=== PATIENT | male | born 1985 | race Caucasian/White ===

== ENCOUNTER 2021-04-12 08:30 | Inpatient (IN) ==
[2021-04-12] MEDS ORDERED: Cefepime 2 GM in Dextrose 2 GM/50 ML BAG IV SCH (10:00)
[2021-04-12] MEDS ORDERED: Vancomycin per Pharmacy 1 EA NOTE FOLLOW UP SCH (10:00)
[2021-04-12] MEDS: NS 0.9% 1000 ml BAG 1,000 ML IV SCH (10:21)
[2021-04-12 10:32] LABS: Hematocrit 37 % (42-52); Hemoglobin 12.6 g/dL (14.0-18.0); Mean Corpuscular HGB Conc 35 g/dL (31-36); Mean Corpuscular Hemoglobin 29 pg (27-31); Mean Corpuscular Volume 83 fL (80-94); Mean Platelet Volume 6.8 fL (7.4-10.4); Platelet Count 270 10^3/uL (150-450); Red Cell Distribution Width 14 % (10-15); White Blood Count 18.4 10^3/uL (3.5-10.8)
[2021-04-12 10:50] LABS: Albumin/Globulin Ratio 0.8 (1-3); C Reactive Protein 285.42 mg/L (<8.01); Calcium 8.8 mg/dL (8.6-10.3); Globulin 3.7 g/dL (2-4); Potassium 3.7 mmol/L (3.5-5.0); Total Bilirubin 1.1 mg/dL (0.2-1.0); Total Protein 6.7 g/dL (6.4-8.9); eGFR CKD-EPI 115.5 (>60)
[2021-04-12] MEDS ORDERED: Piperacillin/Tazobac ADVAN 3.375 GM in NS 0.9% 100 ml BAG 100 ML IV ONE (11:31)
[2021-04-12] MEDS ORDERED: Iohexol 300 (CONTRAST) 10 ML SDV IV ONE (11:38)
[2021-04-12] MEDS ORDERED: Zosyn per Pharmacy NOTE FOLLOW UP SCH (12:00)
[2021-04-12 12:15] LABS: ABS Eosinophils 0.1 10^3/ul (0-0.6); ABS Lymphocytes 0.4 10^3/ul (1.0-4.8); ABS Neutrophils 16.9 10^3/ul (1.5-7.7); Eosinophil % 0.6 %; Lymphocyte % 2.1 %
[2021-04-12] MEDS: ZOSYN 3.375 GM Q8H per EXTENDED INFUSION IV SCH (16:36)
[2021-04-12] MEDS: Vancomycin 1000 MG in NS 0.9% 250 ML IVPB SCH (17:22)
[2021-04-12] MEDS: HYDROmorphone 1 MG/1 ML SYRINGE IV SLOW PU PRN (21:23)
[2021-04-12 21:52] LABS: Troponin I 0.07 ng/mL (<0.03)
[2021-04-13] MEDS: NS 0.9% 1000 ml BAG 1,000 ML IV SCH ×2 (00:17→17:28)
[2021-04-13] MEDS: Vancomycin 1000 MG in NS 0.9% 250 ML IVPB SCH ×3 (00:34→17:22)
[2021-04-13] MEDS: ZOSYN 3.375 GM Q8H per EXTENDED INFUSION IV SCH ×2 (00:34→08:37)
[2021-04-13] MEDS: HYDROmorphone 1 MG/1 ML SYRINGE IV SLOW PU PRN ×3 (04:11→14:36)
[2021-04-13 06:44] LABS: ABS Eosinophils 0.1 10^3/ul (0-0.6); ABS Lymphocytes 0.7 10^3/ul (1.0-4.8); ABS Monocytes 1.1 10^3/ul (0-0.8); ABS Neutrophils 13.1 10^3/ul (1.5-7.7); Eosinophil % 0.6 %; Hematocrit 33 % (42-52); Hemoglobin 11.4 g/dL (14.0-18.0); Lymphocyte % 4.7 %; Mean Corpuscular HGB Conc 35 g/dL (31-36); Mean Corpuscular Hemoglobin 29 pg (27-31); Mean Corpuscular Volume 84 fL (80-94); Mean Platelet Volume 7.4 fL (7.4-10.4); Platelet Count 241 10^3/uL (150-450); Red Blood Count 3.95 10^6 /uL (4.18-5.48); Red Cell Distribution Width 14 % (10-15)
[2021-04-13 06:56] LABS: Potassium 3.5 mmol/L (3.5-5.0); eGFR CKD-EPI 115.9 (>60)
[2021-04-13] MEDS ORDERED: HYDROmorphone 1 MG/1 ML SYRINGE IV SLOW PU ONE (15:05)
[2021-04-13] MEDS ORDERED: HYDROmorphone 0.5 MG/0.5 ML SYRINGE ONE (15:12)
[2021-04-13] MEDS ORDERED: HYDROmorphone 1 MG/1 ML SYRINGE ONE (15:14)
[2021-04-13] MEDS ORDERED: Vancomycin Trough Check NOTE FOLLOW UP ONE (16:30)
[2021-04-13] MEDS ORDERED: Senna TAB 8.6 mg TAB PO PRN (17:49)
[2021-04-14] MEDS: Vancomycin 1,250 MG in NS 0.9% 250 ml 250 ML IVPB SCH ×3 (00:53→18:05)
[2021-04-14] MEDS: HYDROmorphone 1 MG/1 ML SYRINGE IV SLOW PU PRN ×2 (01:01→08:07)
[2021-04-14 06:40] LABS: ABS Eosinophils 0.1 10^3/ul (0-0.6); ABS Lymphocytes 1.1 10^3/ul (1.0-4.8); ABS Monocytes 1.3 10^3/ul (0-0.8); ABS Neutrophils 9.7 10^3/ul (1.5-7.7); Hematocrit 32 % (42-52); Hemoglobin 11.1 g/dL (14.0-18.0); Lymphocyte % 8.8 %; Mean Corpuscular HGB Conc 34 g/dL (31-36); Mean Corpuscular Hemoglobin 29 pg (27-31); Mean Corpuscular Volume 84 fL (80-94); Mean Platelet Volume 7.1 fL (7.4-10.4); Platelet Count 245 10^3/uL (150-450); Red Blood Count 3.84 10^6 /uL (4.18-5.48); Red Cell Distribution Width 14 % (10-15); White Blood Count 12.2 10^3/uL (3.5-10.8)
[2021-04-14 06:58] LABS: C Reactive Protein 156.43 mg/L (<8.01); Calcium 7.7 mg/dL (8.6-10.3); Potassium 3.6 mmol/L (3.5-5.0); eGFR CKD-EPI 126.4 (>60)
[2021-04-14] MEDS ORDERED: Enoxaparin 80 MG/0.8 ML SYR SUBCUT SCH (10:00)
[2021-04-14] MEDS: NS 0.9% 1000 ml BAG 1,000 ML IV SCH ×2 (11:54→22:00)
[2021-04-14] MEDS ORDERED: Rocuronium 50 mg VIAL 10 mg/ml 5 ml VIAL (50 mg) ONE (16:08)
[2021-04-14] MEDS ORDERED: Ondansetron 4 mg VIAL 2 MG/ML 2 ml VIAL ONE (16:08)
[2021-04-14] MEDS ORDERED: Dexamethasone IV 4 MG/ML VIAL 1 ml VIAL ONE (16:08)
[2021-04-14] MEDS ORDERED: Midazolam 2 mg/2 ml VIAL 1 mg/ml 2 ml VIAL (2 mg) ONE (16:08)
[2021-04-14] MEDS ORDERED: Lidocaine 2% PF 5 ML VIAL ONE (16:08)
[2021-04-14] MEDS ORDERED: Propofol 10 MG/ML 20 ML BTL ONE (16:08)
[2021-04-14] MEDS ORDERED: fentaNYL 100 mcg/2 ml 50 MCG/ML VIAL ONE (16:08)
[2021-04-14] MEDS ORDERED: HYDROmorphone 1 MG/1 ML SYRINGE IV SLOW PU PRN (16:15)
[2021-04-14] MEDS ORDERED: Famotidine IV 10 MG/ML 2 ml VIAL (20 mg) IV SLOW PU ONE (16:15)
[2021-04-14] MEDS ORDERED: Famotidine IV 10 MG/ML 2 ml VIAL (20 mg) ONE (16:20)
[2021-04-14] MEDS ORDERED: HYDROmorphone 1 MG/1 ML SYRINGE ONE (16:21)
[2021-04-14] MEDS ORDERED: oxyCODONE/Acetamin 5/325 mg TAB PO PRN (18:47)
[2021-04-14] MEDS ORDERED: Naloxone 0.4 mg VIAL 0.4 mg/ml 1 ml VIAL IV PRN (18:47)
[2021-04-14] MEDS ORDERED: Levalbuterol 0.63MG/3ML NEB UNIT OF USE INH PRN (18:47)
[2021-04-14] MEDS ORDERED: HYDROmorphone 1 MG/1 ML SYRINGE IV PRN (18:47)
[2021-04-14] MEDS ORDERED: oxyCODONE/Acetamin 5/325 mg TAB ONE (18:59)
[2021-04-15] MEDS: Vancomycin 1,250 MG in NS 0.9% 250 ml 250 ML IVPB SCH ×3 (00:50→17:53)
[2021-04-15] MEDS: Enoxaparin 80 MG/0.8 ML SYR SUBCUT SCH ×2 (05:09→17:25)
[2021-04-15] MEDS ORDERED: Vancomycin Trough Check NOTE FOLLOW UP ONE (08:30)
[2021-04-15 09:06] LABS: Hematocrit 33 % (42-52); Hemoglobin 11.1 g/dL (14.0-18.0); Mean Corpuscular HGB Conc 33 g/dL (31-36); Mean Corpuscular Hemoglobin 28 pg (27-31); Mean Corpuscular Volume 85 fL (80-94); Mean Platelet Volume 7.1 fL (7.4-10.4); Platelet Count 329 10^3/uL (150-450); Red Blood Count 3.91 10^6 /uL (4.18-5.48); Red Cell Distribution Width 14 % (10-15); White Blood Count 19.2 10^3/uL (3.5-10.8)
[2021-04-15] MEDS: HYDROmorphone 1 MG/1 ML SYRINGE IV SLOW PU PRN ×3 (09:25→17:26)
[2021-04-15 09:26] LABS: C Reactive Protein 172.96 mg/L (<8.01); Calcium 7.7 mg/dL (8.6-10.3); eGFR CKD-EPI 128.3 (>60)
[2021-04-15 09:39] LABS: Vancomycin Trough 11.7 mcg/mL
[2021-04-15 10:16] LABS: ABS Basophils 0.1 10^3/ul (0-0.2); ABS Lymphocytes 1.4 10^3/ul (1.0-4.8); ABS Monocytes 1.1 10^3/ul (0-0.8); ABS Neutrophils 16.5 10^3/ul (1.5-7.7); Eosinophil % 0.1 %; Lymphocyte % 7.5 %; Nucleated Red Blood Cells % 0.1
[2021-04-15] MEDS: NS 0.9% 1000 ml BAG 1,000 ML IV SCH (12:24)
[2021-04-16] MEDS: Vancomycin 1,250 MG in NS 0.9% 250 ml 250 ML IVPB SCH ×3 (00:35→18:01)
[2021-04-16] MEDS: NS 0.9% 1000 ml BAG 1,000 ML IV SCH (00:36)
[2021-04-16] MEDS: HYDROmorphone 1 MG/1 ML SYRINGE IV SLOW PU PRN (04:32)
[2021-04-16] MEDS: Enoxaparin 80 MG/0.8 ML SYR SUBCUT SCH ×2 (04:38→17:57)
[2021-04-16] MEDS ORDERED: Buprenorp/Nalox 8-2 MG FILM SL FILM SCH (11:00)
[2021-04-16] MEDS ORDERED: Propofol 10 MG/ML 20 ML BTL ONE (11:10)
[2021-04-16] MEDS ORDERED: fentaNYL 100 mcg/2 ml 50 MCG/ML VIAL ONE (11:10)
[2021-04-16] MEDS ORDERED: Midazolam 5 mg/5 ml VIAL 1 mg/ml 5 ml VIAL (5 mg) ONE (11:10)
[2021-04-16] MEDS ORDERED: Ondansetron 4 mg VIAL 2 MG/ML 2 ml VIAL ONE (11:10)
[2021-04-16] MEDS ORDERED: Dexamethasone IV 4 MG/ML VIAL 1 ml VIAL ONE (11:10)
[2021-04-16] MEDS ORDERED: Lidocaine 2% PF 5 ML VIAL ONE (11:10)
[2021-04-16] MEDS ORDERED: Rocuronium 50 mg VIAL 10 mg/ml 5 ml VIAL (50 mg) ONE (11:10)
[2021-04-16] MEDS ORDERED: Sugammadex 500 MG/5 ML 5 ml VIAL IV PUSH ONE (12:27)
[2021-04-16] MEDS ORDERED: Levalbuterol 0.63MG/3ML NEB UNIT OF USE INH ONE (12:56)
[2021-04-16] MEDS ORDERED: Levalbuterol 0.63MG/3ML NEB UNIT OF USE INH PRN (13:06)
[2021-04-16] MEDS ORDERED: Lactated Ringers 1000 ml BAG 1,000 ML IV ONE (13:27)
[2021-04-16 15:09] LABS: PCO2 Arterial 32 mmHg (35-45); PO2 Arterial 79 mmHg (80-100)
[2021-04-16 15:22] LABS: Hematocrit 29 % (42-52); Hemoglobin 9.9 g/dL (14.0-18.0); Mean Corpuscular HGB Conc 34 g/dL (31-36); Mean Corpuscular Hemoglobin 29 pg (27-31); Mean Corpuscular Volume 84 fL (80-94); Red Blood Count 3.43 10^6 /uL (4.18-5.48); Red Cell Distribution Width 14 % (10-15); White Blood Count 19.6 10^3/uL (3.5-10.8)
[2021-04-16] MEDS ORDERED: Furosemide 40 mg/4 ml IV VIAL IV SLOW PU ONE (15:25)
[2021-04-16] MEDS ORDERED: Furosemide 20 mg/2 ml IV VIAL ONE (15:28)
[2021-04-16 16:06] LABS: ABS Basophils 0.1 10^3/ul (0-0.2); ABS Eosinophils 0.1 10^3/ul (0-0.6); ABS Lymphocytes 1.7 10^3/ul (1.0-4.8); ABS Monocytes 0.8 10^3/ul (0-0.8); Eosinophil % 0.4 %; Lymphocyte % 8.7 %; Mean Platelet Volume 6.7 fL (7.4-10.4); Platelet Count 417 10^3/uL (150-450)
[2021-04-16 16:10] LABS: Albumin 2.2 g/dL (3.2-5.2); Albumin/Globulin Ratio 0.7 (1-3); Calcium 7.1 mg/dL (8.6-10.3); Globulin 3.2 g/dL (2-4); Potassium 3.8 mmol/L (3.5-5.0); Total Bilirubin 0.8 mg/dL (0.2-1.0); Total Protein 5.4 g/dL (6.4-8.9); eGFR CKD-EPI 128.3 (>60)
[2021-04-17] MEDS: Vancomycin 1,500 MG in NS 0.9% 250 ml 250 ML IVPB SCH ×3 (02:16→18:06)
[2021-04-17] MEDS: Buprenorp/Nalox 8-2 MG FILM SL FILM SCH ×3 (02:42→19:58)
[2021-04-17] MEDS: Enoxaparin 80 MG/0.8 ML SYR SUBCUT SCH ×2 (06:02→18:06)
[2021-04-17 11:00] LABS: Hematocrit 33 % (42-52); Hemoglobin 11.2 g/dL (14.0-18.0); Mean Corpuscular HGB Conc 34 g/dL (31-36); Mean Corpuscular Hemoglobin 29 pg (27-31); Mean Corpuscular Volume 83 fL (80-94); Mean Platelet Volume 6.3 fL (7.4-10.4); Platelet Count 398 10^3/uL (150-450); Red Blood Count 3.91 10^6 /uL (4.18-5.48); Red Cell Distribution Width 14 % (10-15); White Blood Count 21.9 10^3/uL (3.5-10.8)
[2021-04-17 11:18] LABS: Albumin 2.1 g/dL (3.2-5.2); Albumin/Globulin Ratio 0.6 (1-3); C Reactive Protein 185.85 mg/L (<8.01); Calcium 7.2 mg/dL (8.6-10.3); Globulin 3.5 g/dL (2-4); Magnesium 1.6 mg/dL (1.9-2.7); Phosphorus 3.2 mg/dL (2.5-5.0); Potassium 3.2 mmol/L (3.5-5.0); Total Bilirubin 0.8 mg/dL (0.2-1.0); Total Protein 5.6 g/dL (6.4-8.9)
[2021-04-17 12:06] LABS: ABS Basophils 0.1 10^3/ul (0-0.2); ABS Eosinophils 0.2 10^3/ul (0-0.6); ABS Lymphocytes 1.9 10^3/ul (1.0-4.8); ABS Monocytes 0.7 10^3/ul (0-0.8); Eosinophil % 0.7 %; Lymphocyte % 8.9 %; Nucleated Red Blood Cells % 0.1
[2021-04-17] MEDS ORDERED: Potassium Chloride LIQUID 20 MEQ/15 ML LIQUID PO ONE (14:00)
[2021-04-17] MEDS ORDERED: Furosemide 40 mg/4 ml IV VIAL IV ONE (15:38)
[2021-04-17] MEDS ORDERED: Magnesium Hydroxide LIQ 30 ML UDC PO ONE (19:12)
[2021-04-17] MEDS: Senna TAB 8.6 mg TAB PO SCH (19:58)
[2021-04-18] MEDS ORDERED: Acetaminophen IV 1 GM/100ML 100 ML IV ONE (02:25)
[2021-04-18] MEDS: Vancomycin 1,500 MG in NS 0.9% 250 ml 250 ML IVPB SCH ×4 (03:13→18:30)
[2021-04-18] MEDS: Enoxaparin 80 MG/0.8 ML SYR SUBCUT SCH ×2 (06:45→18:30)
[2021-04-18] MEDS ORDERED: Potassium Chlor 20 meq TAB.ER PO ONE (07:07)
[2021-04-18] MEDS: Senna TAB 8.6 mg TAB PO SCH ×2 (07:28→20:50)
[2021-04-18] MEDS: Buprenorp/Nalox 8-2 MG FILM SL FILM SCH ×2 (07:28→20:49)
[2021-04-18] MEDS ORDERED: KCL 20 MEQ/100 ML IVPREMIX 20 MEQ/100 ML BAG IV ONE (08:10)
[2021-04-18 08:13] LABS: Hematocrit 31 % (42-52); Hemoglobin 10.5 g/dL (14.0-18.0); Mean Corpuscular HGB Conc 34 g/dL (31-36); Mean Corpuscular Hemoglobin 29 pg (27-31); Mean Corpuscular Volume 85 fL (80-94); Mean Platelet Volume 6.6 fL (7.4-10.4); Platelet Count 459 10^3/uL (150-450); Red Blood Count 3.61 10^6 /uL (4.18-5.48); Red Cell Distribution Width 14 % (10-15); White Blood Count 22.7 10^3/uL (3.5-10.8)
[2021-04-18 08:28] LABS: Calcium 7.4 mg/dL (8.6-10.3); Magnesium 1.8 mg/dL (1.9-2.7); Phosphorus 4.5 mg/dL (2.5-5.0); Potassium 4.5 mmol/L (3.5-5.0); eGFR CKD-EPI 125.2 (>60)
[2021-04-18] MEDS ORDERED: Vancomycin Trough Check NOTE FOLLOW UP ONE (09:30)
[2021-04-18] MEDS ORDERED: Furosemide 20 mg/2 ml IV VIAL IV ONE (13:49)
[2021-04-19] MEDS: Vancomycin 1,500 MG in NS 0.9% 250 ml 250 ML IVPB SCH ×2 (01:58→10:04)
[2021-04-19] MEDS: Enoxaparin 80 MG/0.8 ML SYR SUBCUT SCH ×2 (05:35→17:34)
[2021-04-19 07:40] LABS: ABS Basophils 0.2 10^3/ul (0-0.2); ABS Eosinophils 0.3 10^3/ul (0-0.6); ABS Monocytes 0.7 10^3/ul (0-0.8); ABS Neutrophils 16.5 10^3/ul (1.5-7.7); Eosinophil % 1.6 %; Hematocrit 29 % (42-52); Hemoglobin 9.8 g/dL (14.0-18.0); Mean Corpuscular HGB Conc 34 g/dL (31-36); Mean Corpuscular Hemoglobin 29 pg (27-31); Mean Corpuscular Volume 85 fL (80-94); Mean Platelet Volume 6.5 fL (7.4-10.4); Platelet Count 509 10^3/uL (150-450); Red Blood Count 3.39 10^6 /uL (4.18-5.48); Red Cell Distribution Width 14 % (10-15); White Blood Count 19.7 10^3/uL (3.5-10.8)
[2021-04-19 07:55] LABS: Albumin 2.4 g/dL (3.2-5.2); Albumin/Globulin Ratio 0.6 (1-3); C Reactive Protein 192.53 mg/L (<8.01); Calcium 7.5 mg/dL (8.6-10.3); Globulin 4.2 g/dL (2-4); Magnesium 1.8 mg/dL (1.9-2.7); Total Bilirubin 0.8 mg/dL (0.2-1.0); Total Protein 6.6 g/dL (6.4-8.9); eGFR CKD-EPI 129.6 (>60)
[2021-04-19] MEDS ORDERED: Magnesium Sulfate IV 1GM/100ML 1 GM/100 ML BAG IV ONE (08:41)
[2021-04-19] MEDS: Senna TAB 8.6 mg TAB PO SCH ×3 (09:02→19:42)
[2021-04-19] MEDS: Buprenorp/Nalox 8-2 MG FILM SL FILM SCH ×2 (09:49→19:43)
[2021-04-19] MEDS ORDERED: Vancomycin 1,250 MG in NS 0.9% 250 ml 250 ML IVPB SCH (11:52)
[2021-04-19] MEDS ORDERED: COVID-19 VACCINE, MRNA(PFIZER)/PF 30 MCG/0.3 ML IM ONE (12:00)
[2021-04-19] MEDS: Vancomycin 1,250 MG in NS 0.9% 250 ml 250 ML IVPB SCH (17:34)
[2021-04-20] MEDS: Vancomycin 1,250 MG in NS 0.9% 250 ml 250 ML IVPB SCH ×3 (02:00→17:48)
[2021-04-20] MEDS: Enoxaparin 80 MG/0.8 ML SYR SUBCUT SCH ×2 (05:27→17:48)
[2021-04-20 06:36] LABS: ABS Eosinophils 0.4 10^3/ul (0-0.6); ABS Lymphocytes 1.5 10^3/ul (1.0-4.8); ABS Monocytes 0.6 10^3/ul (0-0.8); ABS Neutrophils 13.4 10^3/ul (1.5-7.7); Eosinophil % 2.4 %; Hematocrit 28 % (42-52); Hemoglobin 9.6 g/dL (14.0-18.0); Lymphocyte % 9.7 %; Mean Corpuscular HGB Conc 34 g/dL (31-36); Mean Corpuscular Hemoglobin 29 pg (27-31); Mean Corpuscular Volume 85 fL (80-94); Mean Platelet Volume 6.4 fL (7.4-10.4); Platelet Count 529 10^3/uL (150-450); Red Blood Count 3.33 10^6 /uL (4.18-5.48); Red Cell Distribution Width 14 % (10-15); White Blood Count 15.9 10^3/uL (3.5-10.8)
[2021-04-20 06:54] LABS: Albumin 2.3 g/dL (3.2-5.2); Albumin/Globulin Ratio 0.5 (1-3); Calcium 7.6 mg/dL (8.6-10.3); Globulin 4.3 g/dL (2-4); Magnesium 1.9 mg/dL (1.9-2.7); Potassium 4.1 mmol/L (3.5-5.0); Total Bilirubin 0.6 mg/dL (0.2-1.0); Total Protein 6.6 g/dL (6.4-8.9)
[2021-04-20] MEDS: Buprenorp/Nalox 8-2 MG FILM SL FILM SCH ×2 (08:15→21:33)
[2021-04-20] MEDS: Senna TAB 8.6 mg TAB PO SCH ×2 (08:15→21:33)
[2021-04-21] MEDS: Vancomycin 1,250 MG in NS 0.9% 250 ml 250 ML IVPB SCH ×3 (01:58→18:43)
[2021-04-21] MEDS: Enoxaparin 80 MG/0.8 ML SYR SUBCUT SCH ×2 (05:56→18:43)
[2021-04-21] MEDS: Senna TAB 8.6 mg TAB PO SCH ×2 (08:32→21:16)
[2021-04-21] MEDS: Buprenorp/Nalox 8-2 MG FILM SL FILM SCH ×2 (08:32→21:16)
[2021-04-22] MEDS: Vancomycin 1,250 MG in NS 0.9% 250 ml 250 ML IVPB SCH ×3 (02:11→18:01)
[2021-04-22] MEDS: Enoxaparin 80 MG/0.8 ML SYR SUBCUT SCH ×2 (05:49→18:01)
[2021-04-22] MEDS: Senna TAB 8.6 mg TAB PO SCH ×2 (07:19→20:25)
[2021-04-22] MEDS: Buprenorp/Nalox 8-2 MG FILM SL FILM SCH (07:19)
[2021-04-22] MEDS ORDERED: Nicotine GUM 4MG FRUIT FLAVOR PO PRN (08:11)
[2021-04-22] MEDS ORDERED: Vancomycin Trough Check NOTE FOLLOW UP ONE (09:30)
[2021-04-22 09:36] LABS: eGFR CKD-EPI 125.8 (>60)
[2021-04-22 09:49] LABS: Vancomycin Trough 12.5 mcg/mL
[2021-04-23] MEDS: Vancomycin 1,250 MG in NS 0.9% 250 ml 250 ML IVPB SCH ×2 (01:54→09:44)
[2021-04-23] MEDS: Enoxaparin 80 MG/0.8 ML SYR SUBCUT SCH ×2 (05:37→18:41)
[2021-04-23 09:19] LABS: ABS Basophils 0.1 10^3/ul (0-0.2); ABS Eosinophils 0.2 10^3/ul (0-0.6); ABS Lymphocytes 1.5 10^3/ul (1.0-4.8); ABS Monocytes 0.7 10^3/ul (0-0.8); Eosinophil % 2.3 %; Hematocrit 29 % (42-52); Hemoglobin 9.7 g/dL (14.0-18.0); Mean Corpuscular HGB Conc 34 g/dL (31-36); Mean Corpuscular Hemoglobin 28 pg (27-31); Mean Corpuscular Volume 84 fL (80-94); Mean Platelet Volume 6.2 fL (7.4-10.4); Platelet Count 762 10^3/uL (150-450); Red Blood Count 3.45 10^6 /uL (4.18-5.48); Red Cell Distribution Width 14 % (10-15); White Blood Count 9.6 10^3/uL (3.5-10.8)
[2021-04-23] MEDS: Senna TAB 8.6 mg TAB PO SCH ×2 (09:40→20:34)
[2021-04-23 10:34] LABS: Albumin 2.7 g/dL (3.2-5.2); Albumin/Globulin Ratio 0.5 (1-3); C Reactive Protein 111.08 mg/L (<8.01); Calcium 8.2 mg/dL (8.6-10.3); Potassium 3.8 mmol/L (3.5-5.0); Total Bilirubin 0.4 mg/dL (0.2-1.0); Total Protein 7.7 g/dL (6.4-8.9); eGFR CKD-EPI 133.2 (>60)
[2021-04-23] MEDS: DAPTOmycin SDV 500 MG in NS 0.9% 50 ML 50 ML IVPB SCH (19:01)
[2021-04-24] MEDS: Enoxaparin 80 MG/0.8 ML SYR SUBCUT SCH ×2 (05:56→18:30)
[2021-04-24 05:57] LABS: ABS Basophils 0.3 10^3/ul (0-0.2); ABS Eosinophils 0.2 10^3/ul (0-0.6); ABS Monocytes 0.8 10^3/ul (0-0.8); Hematocrit 28 % (42-52); Hemoglobin 9.6 g/dL (14.0-18.0); Lymphocyte % 19.8 %; Mean Corpuscular HGB Conc 34 g/dL (31-36); Mean Corpuscular Hemoglobin 29 pg (27-31); Mean Corpuscular Volume 84 fL (80-94); Platelet Count 776 10^3/uL (150-450); Red Blood Count 3.36 10^6 /uL (4.18-5.48); Red Cell Distribution Width 14 % (10-15); White Blood Count 10.2 10^3/uL (3.5-10.8)
[2021-04-24 06:18] LABS: Albumin 2.5 g/dL (3.2-5.2); Albumin/Globulin Ratio 0.5 (1-3); Calcium 8.3 mg/dL (8.6-10.3); Globulin 4.8 g/dL (2-4); Potassium 4.5 mmol/L (3.5-5.0); Total Bilirubin 0.3 mg/dL (0.2-1.0); Total Protein 7.3 g/dL (6.4-8.9); eGFR CKD-EPI 130.3 (>60)
[2021-04-24] MEDS: Senna TAB 8.6 mg TAB PO SCH ×2 (09:54→20:53)
[2021-04-24] MEDS: DAPTOmycin SDV 500 MG in NS 0.9% 50 ML 50 ML IVPB SCH (18:30)
[2021-04-25] MEDS: Enoxaparin 80 MG/0.8 ML SYR SUBCUT SCH ×2 (06:41→17:46)
[2021-04-25 06:49] LABS: ABS Basophils 0.2 10^3/ul (0-0.2); ABS Eosinophils 0.2 10^3/ul (0-0.6); ABS Lymphocytes 1.5 10^3/ul (1.0-4.8); ABS Monocytes 0.6 10^3/ul (0-0.8); ABS Neutrophils 4.6 10^3/ul (1.5-7.7); Eosinophil % 2.4 %; Hematocrit 28 % (42-52); Hemoglobin 9.8 g/dL (14.0-18.0); Lymphocyte % 21.4 %; Mean Corpuscular HGB Conc 35 g/dL (31-36); Mean Corpuscular Hemoglobin 29 pg (27-31); Mean Corpuscular Volume 84 fL (80-94); Mean Platelet Volume 5.8 fL (7.4-10.4); Nucleated Red Blood Cells % 0.1; Platelet Count 739 10^3/uL (150-450); Red Blood Count 3.35 10^6 /uL (4.18-5.48); Red Cell Distribution Width 14 % (10-15); White Blood Count 7.1 10^3/uL (3.5-10.8)
[2021-04-25 07:06] LABS: Albumin 2.8 g/dL (3.2-5.2); Albumin/Globulin Ratio 0.5 (1-3); C Reactive Protein 96.4 mg/L (<8.01); Calcium 8.5 mg/dL (8.6-10.3); Globulin 5.1 g/dL (2-4); Potassium 4.5 mmol/L (3.5-5.0); Total Bilirubin 0.3 mg/dL (0.2-1.0); Total Protein 7.9 g/dL (6.4-8.9)
[2021-04-25] MEDS: Senna TAB 8.6 mg TAB PO SCH ×2 (09:57→20:25)
[2021-04-25] MEDS: DAPTOmycin SDV 500 MG in NS 0.9% 50 ML 50 ML IVPB SCH (17:49)
[2021-04-26] MEDS: Enoxaparin 80 MG/0.8 ML SYR SUBCUT SCH ×2 (06:19→18:36)
[2021-04-26] MEDS: Senna TAB 8.6 mg TAB PO SCH ×2 (09:17→20:21)
[2021-04-26] MEDS ORDERED: Vancomycin Trough Check NOTE FOLLOW UP ONE (09:30)
[2021-04-26 09:35] LABS: eGFR CKD-EPI 130.3 (>60)
[2021-04-26 10:00] LABS: Vancomycin Trough < 2.0 mcg/mL
[2021-04-26] MEDS: DAPTOmycin SDV 500 MG in NS 0.9% 50 ML 50 ML IVPB SCH (18:36)
[2021-04-27] MEDS: Enoxaparin 80 MG/0.8 ML SYR SUBCUT SCH ×2 (05:42→18:09)
[2021-04-27] MEDS: Senna TAB 8.6 mg TAB PO SCH ×2 (09:02→20:25)
[2021-04-27] MEDS: DAPTOmycin SDV 500 MG in NS 0.9% 50 ML 50 ML IVPB SCH (18:09)
[2021-04-28] MEDS: Enoxaparin 80 MG/0.8 ML SYR SUBCUT SCH ×2 (05:29→18:21)
[2021-04-28] MEDS: Senna TAB 8.6 mg TAB PO SCH ×2 (08:32→20:18)
[2021-04-28] MEDS: DAPTOmycin SDV 500 MG in NS 0.9% 50 ML 50 ML IVPB SCH (18:10)
[2021-04-29] MEDS: Enoxaparin 80 MG/0.8 ML SYR SUBCUT SCH ×2 (06:30→18:20)
[2021-04-29] MEDS: Senna TAB 8.6 mg TAB PO SCH ×2 (08:04→20:33)
[2021-04-29] MEDS: DAPTOmycin SDV 500 MG in NS 0.9% 50 ML 50 ML IVPB SCH (18:20)
[2021-04-30] MEDS: Enoxaparin 80 MG/0.8 ML SYR SUBCUT SCH ×2 (06:09→18:06)
[2021-04-30] MEDS: Polyethylene Glycol 3350 17 GM PACKET PO PRN (09:23)
[2021-04-30] MEDS: Senna TAB 8.6 mg TAB PO SCH ×2 (09:25→20:04)
[2021-04-30] MEDS: DAPTOmycin SDV 500 MG in NS 0.9% 50 ML 50 ML IVPB SCH (18:07)
[2021-05-01] MEDS: Enoxaparin 80 MG/0.8 ML SYR SUBCUT SCH ×2 (06:40→18:14)
[2021-05-01] MEDS: Polyethylene Glycol 3350 17 GM PACKET PO PRN (09:12)
[2021-05-01] MEDS: Senna TAB 8.6 mg TAB PO SCH ×2 (09:15→20:08)
[2021-05-01] MEDS: DAPTOmycin SDV 500 MG in NS 0.9% 50 ML 50 ML IVPB SCH (18:15)
[2021-05-02] MEDS: Enoxaparin 80 MG/0.8 ML SYR SUBCUT SCH ×2 (06:10→17:36)
[2021-05-02 06:25] LABS: ABS Basophils 0.1 10^3/ul (0-0.2); ABS Eosinophils 0.4 10^3/ul (0-0.6); ABS Lymphocytes 1.6 10^3/ul (1.0-4.8); ABS Monocytes 0.5 10^3/ul (0-0.8); ABS Neutrophils 2.7 10^3/ul (1.5-7.7); Eosinophil % 7.8 %; Hematocrit 30 % (42-52); Hemoglobin 10.1 g/dL (14.0-18.0); Lymphocyte % 30.3 %; Mean Corpuscular HGB Conc 34 g/dL (31-36); Mean Corpuscular Hemoglobin 28 pg (27-31); Mean Corpuscular Volume 83 fL (80-94); Mean Platelet Volume 5.4 fL (7.4-10.4); Nucleated Red Blood Cells % 0.1; Platelet Count 521 10^3/uL (150-450); Red Blood Count 3.57 10^6 /uL (4.18-5.48); Red Cell Distribution Width 14 % (10-15); White Blood Count 5.4 10^3/uL (3.5-10.8)
[2021-05-02 06:43] LABS: Albumin/Globulin Ratio 0.6 (1-3); C Reactive Protein 24.81 mg/L (<8.01); Calcium 8.9 mg/dL (8.6-10.3); Potassium 4.2 mmol/L (3.5-5.0); Total Bilirubin 0.3 mg/dL (0.2-1.0); eGFR CKD-EPI 124.7 (>60)
[2021-05-02] MEDS: Senna TAB 8.6 mg TAB PO SCH ×2 (10:23→20:19)
[2021-05-02] MEDS: DAPTOmycin SDV 500 MG in NS 0.9% 50 ML 50 ML IVPB SCH (17:36)
[2021-05-03 04:38] LABS: ABS Eosinophils 0.4 10^3/ul (0-0.6); ABS Monocytes 0.6 10^3/ul (0-0.8); ABS Neutrophils 2.8 10^3/ul (1.5-7.7); Eosinophil % 6.9 %; Hematocrit 31 % (42-52); Hemoglobin 10.4 g/dL (14.0-18.0); Lymphocyte % 34.1 %; Mean Corpuscular HGB Conc 34 g/dL (31-36); Mean Corpuscular Hemoglobin 28 pg (27-31); Mean Corpuscular Volume 83 fL (80-94); Mean Platelet Volume 5.8 fL (7.4-10.4); Platelet Count 563 10^3/uL (150-450); Red Blood Count 3.67 10^6 /uL (4.18-5.48); Red Cell Distribution Width 14 % (10-15); White Blood Count 5.8 10^3/uL (3.5-10.8)
[2021-05-03 04:54] LABS: Albumin 3.2 g/dL (3.2-5.2); Albumin/Globulin Ratio 0.6 (1-3); C Reactive Protein 23.83 mg/L (<8.01); Globulin 5.1 g/dL (2-4); Potassium 4.4 mmol/L (3.5-5.0); Total Bilirubin 0.3 mg/dL (0.2-1.0); Total Protein 8.3 g/dL (6.4-8.9)
[2021-05-03] MEDS: Enoxaparin 80 MG/0.8 ML SYR SUBCUT SCH ×2 (05:47→16:55)
[2021-05-03] MEDS: Senna TAB 8.6 mg TAB PO SCH (09:33)
[2021-05-03] MEDS: Polyethylene Glycol 3350 17 GM PACKET PO PRN (09:34)
[2021-05-03 11:53] VITALS: BP 105/64
[2021-05-03] MEDS ORDERED: DAPTOMYCIN IVPB ONE (12:00)
[2021-05-03] MEDS ORDERED: NS 0.9% IVPB ONE (12:00)
== END 2021-05-03 18:25 | disposition home or self-care (01) | DRG 710 ==
LOC: ED 08:30 → EDHOLD 09:34 → SUATTDRO 09:34 → MEDTELE 13:11 → ICU 04-16 17:56 → SSU 04-18 14:50
PROVIDERS: ADMIT Hospitalist; ATTEND Family Medicine
PROC: O.CATEE (2021-04-16 12:15)